=== PATIENT | female | born 1965 | race Caucasian/White ===

== ENCOUNTER → 2016-11-28 | Outpatient (CLI) | payer OTHER ==
--- NOTE | 2016-11-28 09:05 | DI ---
Indication: ITS.REASON: R74.8 ELEVATED LIVER ENZYMES LEVEL PROCEDURE: US GALLBLADDER: Encounter: Initial Comparison: February 27, 2016 Technique: Grayscale and color Doppler sonographic imaging of the right upper quadrant of the abdomen was performed. Findings: Hepatic parenchyma is echogenic and sonographically dense without evidence for focal mass. The gallbladder is normal. There is no wall thickening, pericholecystic fluid, sonographic Morales's sign or cholelithiasis. Both the intra and extrahepatic biliary system are of normal caliber with the common duct measuring 5 mm in dimension. Visualized portions of the head and body of the pancreas are unremarkable. The right kidney is present without collecting system dilatation. The right kidney measures 12.5 cm in length. Impression: Normal gallbladder. Hepatic steatosis. .
== END ==
LOC: IMA 06:41
PROVIDERS: ATTEND Family Medicine
DX: K76.0 Fatty (change of) liver, not elsewhere classified (principal); R74.8 Abnormal levels of other serum enzymes